=== PATIENT | female | born 2005 | race Caucasian/White ===

== ENCOUNTER → 2023-04-20 | Outpatient (REF) | payer OTHER ==
[2023-04-20 20:02] LABS: GC DNA AMPLIFICATION NEGATIVE (NEGATIVE)
== END ==
LOC: M LAB REF 16:34
PROVIDERS: ATTEND Nurse Practitioner Family
DX: Z11.3 Encounter for screening for infections with a predominantly sexual mode of transmission (principal)

== ENCOUNTER 2024-04-23 00:17 | Emergency (ER) | payer OTHER, SELFPAY ==
[~2024-04-23] VITALS: Ht 165.1 cm; Wt 59.0 kg
[2024-04-23] MEDS ORDERED: MIDAZOLAM INJ 2MG/2ML VIAL As Ordered ONE (00:28)
[2024-04-23] MEDS ORDERED: HALOPERIDOL LACTATE 5MG/ML VIAL As Ordered ONE (00:28)
[2024-04-23] MEDS: HALOPERIDOL LACTATE 5MG/ML VIAL IM ONE (00:31)
[2024-04-23] MEDS: MIDAZOLAM INJ 2MG/2ML VIAL IM STA (00:32)
[2024-04-23 00:35] VITALS: TEMP 97
[2024-04-23] MEDS: UNRESOLVED CLARIFICATION ENTRY XX STA (00:44)
[2024-04-23 04:45] VITALS: BP 93/52; O2SAT 96
== END 2024-04-23 05:39 | disposition home or self-care (01) ==
LOC: EDBD 00:17 → M ED 00:17
DX: F10.129 Alcohol abuse with intoxication, unspecified (principal)
CPT/HCPCS: 82077; 96372; 99284; J1630; J2250